=== PATIENT | female | born 1980 | race Caucasian/White ===

== ENCOUNTER 2016-07-15 18:01 | Emergency (ER) | payer BC ==
[2016-07-15 18:19] VITALS: BP 132/98
[2016-07-15] MEDS ORDERED: Ketorolac 60 MG/2 ML SDV IM ONE (18:51)
--- NOTE | 2016-07-15 19:11 | EDM.PDOC ---
ED HPI Trauma - General Chief Complaint: Upper Extremity Injury/Pain Stated Complaint: R SHOULDER PN, R HAND NUMB Time Seen by Provider: 07/15/16 18:45 Source: Reports: Patient History Limitations: Reports: No limitations - History of Present Illness INITIAL COMMENTS - FREE TEXT/NARRATIVE: Patient presents for evaluation and treatment of severe right arm pain. Patient reports that she has not expressed anything like this before. She states that when she woke this morning she had pain from her right shoulder down into her right arm. She reports that she is having a burning pain from the right shoulder to about the right elbow. She then has numbness and tingling from the right elbow and to the right hand. Patient also reports associated symptoms of weakness on the right side. She has also been complaining of a headache radiating into her right ear and feeling fatigued. Patient states that the pain has been constant. She describes it as a burning sensation. She states it is really worsened throughout the day. She has tried Tylenol but has not had any symptom relief. Patient denies any injury to her arm or neck. She denies any neck pain or skin rashes. 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 Denies: neck pain, joint swelling Skin: Denies: rash, erythema Neurological: Reports: Headache, Numbness, Tingling (right elbow to right hand) Trauma Exam - Physical Exam Exam: See Below Exam Limited By: No limitations General Appearance: Reports: alert, WD/WN, anxious ( and tearful), moderate distress Head: Reports: atraumatic, normocephalic Eyes: bilateral eye: EOMI, PERRL Ears: Reports: normal external exam, normal canal, hearing grossly normal, normal TMs, abnormal insufflation Throat/Mouth: Reports: Normal inspection, Normal lips, Normal voice, No airway compromise Neck: Reports: non-tender, full range of motion, normal alignment, normal inspection, other (negative spurlings test) Respiratory Exam: Reports: no respiratory distress, lungs clear, normal breath sounds Cardiovascular: Reports: normal peripheral pulses, regular rate, rhythm, no murmur Extremities: Reports: no evidence of injury, pain with movement (pain with flexion, abduction, adduction and extension of the right shoulder - experiences pain in the right back between the spin and scapula; pain with felxion and extension of the right elbow; pain with supination and pronation), tenderness ( right rhomboid muscles), other (2+ radial pulses; cap refill <2 sec to the right fingers; no muscle atrophy appreciated; pain with lift off and empty can testing to the right shoulder; 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 Denies: bony- point tenderness, joint effusion Neurologic: Reports: alert, normal mood/affect, other (reports sensation to light touch to the right arm) Skin: Reports: Normal color, Warm/dry. Denies: Rash Course - Vital Signs Last Recorded V/S: Last Vital Signs Temp 36.2 C 07/15/16 18:15 Pulse 75 07/15/16 21:40 Resp 18 07/15/16 18:15 BP 132/98 H 07/15/16 18:15 Pulse Ox 100 07/15/16 21:40 - Orders/Labs/Meds Labs: Laboratory Tests 07/15/16 07/15/16 Range/Units 19:32 19:32 WBC 8.04 (3.98-10.04) K/mm3 RBC 4.61 (3.98-5.22) M/mm3 Hgb 13.9 (11.2-15.7) gm/L Hct 41.5 (34.1-44.9) % MCV 90.0 (79.4-94.8) fl MCH 30.2 (25.6-32.2) pg MCHC 33.5 (32.2-35.5) g/dl RDW Std Deviation 42.9 (36.4-46.3) fL Plt Count 235 (182-369) K/mm3 MPV 10.7 (9.4-12.3) fl Neut % (Auto) 62.3 (34.0-71.1) % Lymph % (Auto) 30.1 (19.3-51.7) % [place] % (Auto) 4.5 L (4.7-12.5) % Eos % (Auto) 2.4 (0.7-5.8) Baso % (Auto) 0.5 (0.1-1.2) % Neut # (Auto) 5.01 (1.56-6.13) K/mm3 Lymph # (Auto) 2.42 (1.18-3.74) K/mm3 [place] # (Auto) 0.36 (0.24-0.36) K/mm3 Eos # (Auto) 0.19 (0.04-0.36) K/mm3 Baso # (Auto) 0.04 (0.01-0.08) K/mm3 Sodium 145 (136-145) mEq/L Potassium 4.1 (3.5-5.1) mEq/L Chloride 108 H (98-107) mEq/L Carbon Dioxide 27 (21-32) mEq/L Anion Gap 14.1 (5-15) BUN 8 (7-18) mg/dL Creatinine 1.0 (0.55-1.02) mg/dL Est Cr Clr Drug Dosing 77.08 mL/min Estimated GFR (MDRD) > 60 (>60) mL/min BUN/Creatinine Ratio 8.0 L (14-18) Glucose 94 (74-106) mg/dL Calcium 9.2 (8.5-10.1) mg/dL Magnesium 2.0 (1.8-2.4) mg/dl Total Bilirubin 0.4 (0.2-1.0) mg/dL AST 30 (15-37) U/L ALT 44 (14-59) U/L Alkaline Phosphatase 68 (46-116) U/L C-Reactive Protein < 0.2 (<1.0) mg/dL Total Protein 7.2 (6.4-8.2) g/dl Albumin 4.0 (3.4-5.0) g/dl Globulin 3.2 gm/dL Albumin/Globulin Ratio 1.3 (1-2) TSH 3rd Generation 1.031 (0.358-3.74) uIU/mL Meds: Medications Discontinued Medications Generic Name Dose Route Start Last Admin Trade Name Vilma PRN Reason Stop Dose Admin Hydrocodone Bitart/Acetaminophen 5 tab 07/15/16 21:33 Kinney 325-5 Mg .ROUTE 07/15/16 21:34 .STK-MED ONE Ketorolac Tromethamine 60 mg 07/15/16 18:51 07/15/16 19:07 Toradol IM 07/15/16 18:52 60 mg ONETIME ONE Administration Orphenadrine Citrate Confirm 07/15/16 21:34 Norflex Administered 07/15/16 21:35 Dose 100 mg .ROUTE .STK-MED ONE - Radiology Interpretation Free Text/Narrative:: Xray chest shows no acute intrathoracic process. Xray of the cervical spine shows no acute fractures or dislocations. No joint space narrowing. - Re-Assessments/Exams Free Text/Narrative Re-Assessment/Exam: 07/15/16 21:18 Labs have returned. White blood cell count is 8.04, hgb is 13.9 and platelets are 235. Sodium is 148, potassium 4.1 chloride is 108. Anion gap is 14.1. Glucose is 94. mag is 2.0. CRP is less than 0.2. TSH is 1.031. I reviewed the x-ray and lab results with the patient. At this point is unclear the exact etiology of her severe arm pain. I feel it is possible that she may have had a muscle spasm that is the cause some nerve impingement. This is likely around the rhomboid muscles on the right side is such where she is tender to touch. This could be causing some nerve impingement down into her right arm. I feel that this is likely scenario and will prescribe her medications to help with the pain and discomfort as well to help with inflammation. We discussed other etiologies such as prodromal side effects from early shingles. She should monitor the area closely and follow up with her family medicine provider for further management and care. Discharge instructions as documented. Departure - Departure Time of Disposition: 21:21 Disposition: Home, Self-Care 01 Condition: fair Clinical Impression: Muscle spasm, Nerve pain Prescriptions: Acetaminophen/HYDROcodone [Kinney 325-5 MG] 1 tab PO Q6H PRN #5 tablet PRN Reason: Pain (Severe 7-10) Orphenadrine [Norflex] 100 mg PO BID #1 tab.er Orphenadrine [Norflex] 100 mg PO BID #14 tab.er Prednisone [IJD: predniSONE] 40 mg PO WITHBREAKFAST #10 tab Instructions: Muscle Cramps and Spasms, [id number] Referrals: PCP,None [Primary Care Provider] - Forms: ED Department Discharge Additional Instructions: Use moist heat to the sore areas. Take OTC aleve or ibuprofen as needed for pain. May take 1/2 to 1 tab of norco every 4-6 hours as needed for severe pain. No driving or operating machinery within 12 hours of taking the norco. Kinney can be habit forming. Take as few of the norco as needed to control your pain. take the prenisone 2 tabs or 40mg PO daily x 5 days. Take the norflex 1 tab PO bid. Do not drive or operate machinery until you know how this medicine affects you as it can make you drowsy. Follow-up with family med if not better Thursday or Thursday. Please return to the ER should your symptoms change or worsen.
[2016-07-15] MEDS ORDERED: Acetaminophen/HYDROcodone 325-5 MG Tab ONE (21:33)
[2016-07-15] MEDS ORDERED: Orphenadrine 100 MG Tab.ER ONE (21:34)
--- NOTE | 2016-07-16 07:37 | CR ---
Cervical spine: AP, lateral and odontoid views of the cervical spine was obtained. Vertebral body heights and disc spaces are maintained. Prevertebral soft tissues are normal. No fracture or subluxation is appreciated. Very minimal scoliosis is noted. Impression: 1. Minimal scoliosis. Three-view cervical spine exam is otherwise unremarkable. Diagnostic code #2
--- NOTE | 2016-07-16 13:54 | CR ---
Chest: Two views of the chest were obtained. Comparison: No previous chest x-ray. Heart size and mediastinum are within normal limits. Lungs are clear. Bony structures are unremarkable. Impression: 1. Nothing acute is identified on two-view chest x-ray. Diagnostic code #1
== END 2016-07-15 21:40 | disposition home or self-care (01) ==
LOC: JD.ED 18:01
DX: M62.838 Other muscle spasm (principal); M79.2 Neuralgia and neuritis, unspecified
CPT/HCPCS: 36415; 71020; 72040; 80053; 83735; 84443; 85025; 86140; 96372; 99284; A9270; J1885; 99283

== ENCOUNTER 2018-07-14 06:48 | Emergency (ER) | payer SELFPAY ==
--- NOTE | 2018-07-14 07:05 | EDM.PDOC ---
ED HPI GENERAL MEDICAL PROBLEM - General Chief Complaint: Chest Pain Stated Complaint: RIB PAIN Time Seen by Provider: 07/14/18 07:04 Source of Information: Reports: Patient History Limitations: Reports: No Limitations - History of Present Illness INITIAL COMMENTS - FREE TEXT/NARRATIVE: 37-year-old female presents to the ED with bilateral posterior thoracic chest pain that radiates around to the front of her chest. She describes it as sharp and stabbing with movement and morbid ache with deep breathing. No associated cough fever or sputum production. Denies any falls or recent injuries. Onset: Gradual Onset Date: 07/09/18 Duration: Day(s):, Constant, Getting Worse Location: Reports: Back (bilateral thoracic back pain. Hurts to breathe but no peuritic component. ) Quality: Reports: Ache, Sharp ( with certain movements), Stabbing Severity: Moderate Improves with: Reports: Rest Worsens with: Reports: Other (deep- breathing or coughing. ), Movement Context: Reports: Other (spontaneous occurrence. ). Denies: Activity, Exercise , Lifting, Sick Contact, Trauma Associated Symptoms: Reports: No Other Symptoms. 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 ), Other (see below) Chest Pain Score (Numeric/FACES): 8 - Related Data Allergies Allergy/AdvReac Type Severity Reaction Status Date / Time No Known Allergies Allergy Verified 07/14/18 07:12 Home Meds: Home Meds Diclofenac Sodium [Voltaren] 50 mg PO TID #30 tab.ec 07/14/18 [Rx] Orphenadrine [Norflex] 100 mg PO BID PRN #20 tab 07/14/18 [Rx] oxyCODONE HCl/Acetaminophen [Percocet 5-325 mg Tablet] 1 - 2 each PO Q4H PRN # 12 tablet 07/14/18 [Rx] predniSONE [Deltasone] 20 mg PO ASDIRECTED #15 tablet 07/14/18 [Rx] 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 ) Cardiovascular: Reports: Chest Pain (posterior thoracic pain), Blood Pressure Problem (although elevated at time of exam. ). Denies: Claudication, Dyspnea on Exertion, Edema, Orthopnea Endocrine: Reports: No Symptoms GI/Abdominal: Reports: No Symptoms : Reports: No Symptoms Musculoskeletal: Reports: Back Pain ( bilateral upper and mid thoracic back pain. ) Skin: Reports: No Symptoms Neurological: Reports: No Symptoms Psychiatric: Reports: No Symptoms Hematologic/Lymphatic: Reports: No Symptoms Immunologic: Reports: No Symptoms ED EXAM, GENERAL - Physical Exam Exam: See Below Exam Limited By: No Limitations General Appearance: Alert, WD/WN, Moderate Distress ( symptoms appear to be exagerated. Nearly crying with palpation of rib heads. ?) Eye Exam: Bilateral Eye: Normal Inspection Neck: Normal Inspection, Supple, Non-Tender, Full Range of Motion. No: Lymphadenopathy (L), Lymphadenopathy (R) Respiratory/Chest: No Respiratory Distress, Lungs Clear, Normal Breath Sounds, No Accessory Muscle Use, Chest Non-Tender, Other Cardiovascular: Normal Peripheral Pulses, Regular Rate, Rhythm, No Edema, No Gallop, No Murmur, No Rub Peripheral Pulses: 3+: Posterior Tibial (L), Posterior Tibial (R), Dorsalis Pedis (L), Dorsalis Pedis (R) GI/Abdominal: Normal Bowel Sounds, Soft, Non-Tender, No Organomegaly, No Abnormal Bruit, No Mass Back Exam: Normal Inspection, Full Range of Motion, Vertebral Tenderness ( pain along the paraspinal muscles bilaterally without any spasm. ). No: CVA Tenderness (L), CVA Tenderness (R) Extremities: Normal Inspection, Normal Range of Motion, Non-Tender, No Pedal Edema Neurological: Alert, Oriented, CN II-XII Intact, Normal Cognition Course - Vital Signs Last Recorded V/S: Last Vital Signs Temp 36.9 C 07/14/18 07:03 Pulse 66 07/14/18 07:03 Resp 16 07/14/18 07:03 BP 148/94 H 07/14/18 07:03 Pulse Ox 100 07/14/18 07:03 - Orders/Labs/Meds Orders: Active Orders 24 hr Category Date Time Status Chest 2V [CR] Stat Exams 07/14/18 07:12 Taken Meds: Medications Discontinued Medications Generic Name Dose Route Start Last Admin Trade Name Vilma PRN Reason Stop Dose Admin Ibuprofen 800 mg 07/14/18 07:21 07/14/18 07:44 Motrin PO 07/14/18 07:22 800 mg ONETIME ONE Administration Ondansetron HCl 4 mg 07/14/18 07:51 07/14/18 08:05 Zofran Odt PO 07/14/18 07:52 4 mg ONETIME ONE Administration Oxycodone/Acetaminophen 1 tab 07/14/18 07:21 07/14/18 08:07 Percocet 325-5 Mg PO 07/14/18 07:22 Not Given ONETIME ONE - Radiology Interpretation Free Text/Narrative:: 37-year-old female presents the ED with complaints of diffuse bilateral thoracic back pain and upper and mid. No specific injuries. No knees recent falls or near falls. She states pain is constant and worsened by certain movements and deep breathing. No previous similar problems. She denies sleeping in any abnormal positions or places. Examination reveals her symptoms to be somewhat overdramatic. Pain even to light palpation throughout the paraspinal musculature bilaterally in her back without any paraspinal muscle spasm. There may be one rib head area of subluxation left upper back at T4. Right lower back possibly at T9 level. Again symptoms of even light palpation seem to be extremely exaggerated. Plan two-view chest be done. We'll give her Motrin 800 mg by mouth with 1 Percocet 5/325 mg tablet for acute pain relief. - Re-Assessments/Exams Free Text/Narrative Re-Assessment/Exam: 07/14/18 08:20 2 view chest x-ray has been completed. It shows no abdomen maladies of the ribs or the spinous thoracic vertebrae. Her pain appears to be musculoskeletal legal with overlying pain on light palpation of the or spinal musculature. Treatment will be Voltaren 50 mg 3 times daily to relieve pain and inflammation for the next 10 days. Deltasone 20 mg twice daily with breakfast and supper for 5 days and once in the morning for another 5 days. Norflex 100 mg twice a day as needed for muscle spasm. Departure - Departure Time of Disposition: 08:28 Disposition: Home, Self-Care 01 Reason for Transfer *Q: Other Condition: Fair Clinical Impression: Bilateral thoracic back pain Qualifiers: Chronicity: acute Qualified Code(s): M54.6 - Pain in thoracic spine Prescriptions: Diclofenac Sodium [Voltaren] 50 mg PO TID #30 tab.ec Orphenadrine [Norflex] 100 mg PO BID PRN #20 tab PRN Reason: muscle spasm and pain oxyCODONE HCl/Acetaminophen [Percocet 5-325 mg Tablet] 1 - 2 each PO Q4H PRN # 12 tablet PRN Reason: pain relief. 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 Examination reveals acute tenderness throughout palpation of the paraspinal musculature along the thoracic spine. There appears to be a rib head subluxated at thoracic 4 in the upper left back and at thoracic 9 on the right lower back. This appears to be the source of your thoracic back pain. Two-view chest x-ray reveals no abdomen maladies within the ribs or the thoracic vertebra. I would strongly suggest follow-up with massage therapist to have these rib heads manipulated. I have placed you on anti-inflammatory medication Voltaren 50 mg 3 times daily for the next 10 days to relieve pain and inflammation. Also Deltasone 20 mg twice daily breakfast and supper for 5 days and then once in the morning for another 5 days to further relieve pain and inflammation. Norflex 100 mg every 12 hours as needed to relieve pain and inflammation and muscle spasm.Percocet tabs 5/325mg -- 1-2 tabs every 6hrs prn for pain when not at work or operating a motor vehicle.. - My Orders Last 24 Hours: My Active Orders 07/14/18 07:12 Chest 2V [CR] Stat - Assessment/Plan Last 24 Hours: My Active Orders 07/14/18 07:12 Chest 2V [CR] Stat
[2018-07-14 07:11] VITALS: BP 148/94
[2018-07-14] MEDS ORDERED: Ibuprofen 800 MG Tab PO ONE (07:21)
[2018-07-14] MEDS ORDERED: Acetaminophen/oxyCODONE 325-5 MG Tab PO ONE (07:21)
[2018-07-14] MEDS ORDERED: Ondansetron 4 MG Tab.DIS PO ONE (07:51)
--- NOTE | 2018-07-14 08:41 | CR ---
Chest: Two views of the chest were obtained. Comparison: Previous chest x-ray of 07/15/16. Heart size and mediastinum are normal. Lungs are clear with no acute parenchymal change. Bony structures appear within normal limits. Impression: 1. Nothing acute is seen on two-view chest x-ray. Diagnostic code #1
== END 2018-07-14 08:43 | disposition home or self-care (01) ==
LOC: JD.ED 06:48
DX: M54.6 Pain in thoracic spine (principal)
CPT/HCPCS: 71046; 99283; A9270